=== PATIENT | male | born 1945 | race African-American/Black ===

== ENCOUNTER 2019-03-14 09:32 | Outpatient (CLI) | payer OTHER ==
[~2019-03-14 09:32] MED LIST: LEVAQUIN500 MG PO; LOSARTAN-HCTZ1 EAC1; NAPROXEN500 MG; TESSALON PERLE100 MG PO; TUSSI PRES-B L120 M1 PO
== END 2019-03-14 09:40 | disposition home or self-care (01) ==
LOC: NUCLEAR 09:32
DX: I11.9 Hypertensive heart disease without heart failure (principal)